=== PATIENT | female | born 1995 | race Hispanic/Latino ===

== ENCOUNTER 2022-02-09 14:54 | Emergency (ER) | payer OTHER ==
[2022-02-09 15:53] LABS: Absolute Lymphocytes (CBC) 0.7 K/uL (0.7-4.9); Hematocrit 36.4 % (36.0-45.0); Lymphocytes % 7.9 % (15.3-44.8); MCV 89.3 fL (80-100); MPV 8.6 fL (7.6-11.3); RBC Red Blood Cell Count 4.08 M/uL (3.86-4.86)
[2022-02-09 16:23] LABS: Urine Blood Trace-intact (Negative); Urine Glucose Negative (Negative); Urine Protein Negative (Negative); Urine Specific Gravity 1.025 (1.005-1.030); Urine pH 6.5 (5.0-7.0)
[2022-02-09 16:24] LABS: Potassium 3.4 mmol/L (3.5-5.1)
--- NOTE | 2022-02-09 16:57 | RAD REPORT ---
EXAM DESCRIPTION: US - Transvaginal OB - 02/09/2022 4:42 pm CLINICAL HISTORY: Nausea/Vomiting COMPARISON: No comparisons FINDINGS: Single IUP identified. heart tones are present. The crown-rump length measures 2.1 c m which is consistent with 8 week 3 day. Yolk sac measures 2 millimeters. The gestational sac measure s 3.9 cm. The heart rate was estimated at 184 beats/ minute. The left ovary measures 1.9 x 1.2 x 1.2 cm with volume 1.5 cc. Vascular flow is present. The right ovary was not visualized. IMPRESSION: Single viable IUP with positive heart tones measuring 8 week 3 day with REINA of . Vascular flow is present within the left ovary. The right ovary was not visualized.
[2022-02-09 17:08] LABS: Urine Specific Gravity/Preg 1.025 (1.005-1.030)
[2022-02-09] MEDS ORDERED: ONDANSETRON 4 MG/2 ML VIAL ONE (17:18)
[2022-02-09] MEDS ORDERED: FAMOTIDINE 20 MG/2 ML VIAL IV ONE (17:19)
[2022-02-09] MEDS ORDERED: Ringers Lactate 1,000 ML IV ONE (17:19)
[2022-02-09] MEDS ORDERED: POTASSIUM 25 MEQ EFFERV TAB ONE (17:19)
--- NOTE | 2022-02-09 18:26 | ER ---
Nurse's Notes [facility] Name: Nani Wolf Age: 26 yrs Sex: Female : 1995 Arrival Date: 02/09/2022 Time: 14:57 Bed DIS2 Private MD: Diagnosis: Other specified related conditions, first trimester;Nausea with vomiting, unspecified;Acute upper respiratory infection, unspecified Presentation: 02/09 14:58 Chief complaint: EMS states: pt is approx 15 weeks c/o SOB and congestion for iw past 4 days, no fever, home COVID test negative today. Coronavirus screen: Client presents with at least one sign or symptom that may indicate coronavirus-19. Ebola Screen: Patient negative for fever greater than or equal to 101.5 degrees Fahrenheit, and additional compatible Ebola Virus Disease symptoms Patient denies exposure to infectious person. Patient denies travel to an Ebola-affected area in the 21 days before illness onset. No symptoms or risks identified at this time. Risk Assessment: Do you want to hurt yourself or someone else? Patient reports no desire to harm self or others. Onset of symptoms was February 05, 2022. 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 Patient and/or iw family updated on plan of care and expected duration. Pain level reassessed. Patient is alert, oriented x 3, equal unlabored respirations, skin warm/dry/pink. Vital Signs: 17:40 BP 109 / 58; Pulse 79; Resp 16; Temp 97.5; Pulse Ox 98% on R/A; iw ED Course: 14:57 Patient arrived in ED. iw 14:57 Araceli Escamilla, RN is Primary Nurse. iw 14:59 Jd Evans PA is PHCP. cp 14:59 Renard Zapata MD is Attending Physician. cp 15:00 Triage completed. iw 16:09 Inserted saline lock: 20 gauge in right antecubital area, using aseptic technique. zm Blood collected. 16:09 Strep Sent. zm 16:09 COVID-19 SARS RT PCR (Document "Date of Onset" if Symptomatic) Sent. zm 16:09 Influenza Screen (a \\T\\ B) Sent. zm 16:10 Abo/rh Typing Sent. zm 16:10 Basic Metabolic Panel Sent. zm 16:10 CBC with Diff Sent. zm 16:10 Quantitative Hcg Sent. zm 16:35 Urine --Ancillary (enter results) Sent. zm 16:44 US Transvaginal Ob In Process Unspecified. EDMS Administered Medications: 17:16 Drug: Zofran (Ondansetron) 4 mg Route: IVP; Site: right antecubital; iw 17:50 Follow up: Response: No adverse reaction iw 17:16 Drug: Pepcid (famotidine) 20 mg Route: IVP; Site: right antecubital; iw 18:00 Follow up: Response: No adverse reaction iw 17:17 Drug: Lactated Ringers Solution 1000 ml Route: IV; Rate: 200 ml/hr; Site: right iw antecubital; 18:30 Follow up: IV Status: Completed infusion iw 17:51 Not Given (Patient Refused): Potassium Effervescent Tablet 25 mEq PO once; dissolve in iw 4 ounces of water or juice Outcome: 18:25 Discharge ordered by . kolby 19:04 Patient left the ED. Signatures: Dispatcher [employer] EDAraceli Shanks, RN RN iw Jd Evans PA PA cp Martinez, Zaina zm
--- NOTE | 2022-02-09 18:26 | EDPHYS ---
Physician Documentation [facility] Name: Nani Wolf Age: 26 yrs Sex: Female : 1995 Arrival Date: 02/09/2022 Time: 14:57 Bed DIS2 Private MD: ED Physician Renard Zapata HPI: 02/09 15:15 This 26 yrs old Female presents to ER via EMS with complaints of Shortness Of cp Breath, Nasal Congestion. 15:15 The patient or guardian reports cough, that is intermittent, nasal congestion, sore cp throat. 15:15 Onset: The symptoms/episode began/occurred 4 day(s) ago. Associated signs and symptoms: cp Pertinent negatives: chest pain, diarrhea, fever, vomiting. 15:15 The patient presents to the emergency department with nausea and vomiting, vaginal cp bleeding, described as spotting. 15:15 course: care: none, Leakage of Fluid: none appreciated, Ultrasound: cp the patient has not had an ultrasound. Previous pregnancies: in previous pregnancies patient has had no complications. Associated signs and symptoms: Pertinent negatives: abdominal pain, fever. 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 cp 15:20 Eyes: Negative for injury, pain, redness, and discharge. cp 15:20 ENT: Positive for sore throat, Negative for drainage from ear(s), ear pain, difficulty swallowing, difficulty handling secretions. 15:20 Cardiovascular: Negative for chest pain, edema, palpitations. 15:20 Respiratory: Positive for cough, "sounds productive", Negative for wheezing. 15:20 Abdomen/GI: Positive for nausea and vomiting, Negative for abdominal pain, diarrhea, constipation, anorexia. 15:20 Back: Negative for pain at rest, pain with movement. 15:20 : Positive for vaginal bleeding, Negative for urinary symptoms. 15:20 Neuro: Negative for altered mental status, headache, weakness. 15:20 All other systems are negative. Exam: 15:25 Constitutional: The patient appears in no acute distress, alert, awake, comfortable, cp non-toxic, well developed, well nourished. 15:25 Head/Face: Normocephalic, atraumatic. cp 15:25 Eyes: Periorbital structures: appear normal, Conjunctiva: normal, no exudate, no injection, Sclera: no appreciated abnormality, Lids and lashes: appear normal, bilaterally. 15:25 ENT: External ear(s): are unremarkable, Ear canal(s): are normal, clear, TM's: dullness, bilaterally, Nose: is normal, Mouth: Lips: moist, Oral mucosa: pink and intact, moist, Posterior pharynx: Airway: no evidence of obstruction, patent, Tonsils: with erythema, no enlargement, no exudate, swelling, is not appreciated, erythema, that is mild, exudate, is not appreciated. 15:25 Neck: ROM/movement: is normal, is supple, without pain, no range of motions limitations, no meningismus. 15:25 Chest/axilla: Inspection: normal. 15:25 Cardiovascular: Rate: normal, Rhythm: regular, Edema: is not appreciated, JVD: is not appreciated. 15:25 Respiratory: the patient does not display signs of respiratory distress, Respirations: normal, no use of accessory muscles, no retractions, labored breathing, is not present, Breath sounds: decreased breath sounds, are not appreciated, stridor, is not appreciated, + upper airway congestion. wheezing: is not appreciated. 15:25 Abdomen/GI: Inspection: abdomen appears normal, Bowel sounds: active, all quadrants, Palpation: abdomen is soft and non-tender, in all quadrants. 15:25 Back: CVA tenderness, is absent. 15:25 Skin: cellulitis, is not appreciated, no rash present. 15:25 Neuro: Orientation: to person, place \\T\\ time. Mentation: is normal, Motor: moves all fours, strength is normal, Sensation: is normal. Vital Signs: 17:40 BP 109 / 58; Pulse 79; Resp 16; Temp 97.5; Pulse Ox 98% on R/A; iw MDM: 15:00 Patient medically screened. cp 18:25 Data reviewed: vital signs, nurses notes, lab test result(s), radiologic studies, cp ultrasound. 18:25 Counseling: I had a detailed discussion with the patient and/or guardian regarding: the cp historical points, exam findings, and any diagnostic results supporting the discharge/admit diagnosis, lab results, radiology results, the need for outpatient follow up, an OB/Gyne specialist, to return to the emergency department if symptoms worsen or persist or if there are any questions or concerns that arise at home. 02/09 15:11 Order name: Abo/rh Typing; Complete Time: 16:34 02/09 15:11 Order name: Basic Metabolic Panel; Complete Time: 16:34 02/09 16:34 Interpretation: Normal except: NA 133; K 3.4; BUN 5; CRE 0.50. 02/09 15:11 Order name: CBC with Diff; Complete Time: 16:34 02/09 16:34 Interpretation: Normal except: EMIGDIO% 80.7; LYM% 7.9. 02/09 15:11 Order name: Quantitative Hcg; Complete Time: 16:34 02/09 16:36 Interpretation: HCGQ 58765; Reviewed. 02/09 15:11 Order name: Influenza Screen (a \\T\\ B); Complete Time: 17:00 02/09 17:00 Interpretation: Reviewed. 02/09 15:11 Order name: Strep; Complete Time: 17:00 02/09 17:00 Interpretation: Reviewed. 02/09 15:11 Order name: COVID-19 SARS RT PCR (Document "Date of Onset" if Symptomatic); Complete cp Time: 17:00 02/09 17:00 Interpretation: Reviewed. 02/09 15:11 Order name: US Transvaginal Ob; Complete Time: 17:00 02/09 16:24 Order name: Urine Dipstick-Ancillary; Complete Time: 16:34 [facility] 02/09 16:24 Order name: Urine --Ancillary (enter results) em1 02/09 16:37 Order name: Throat Culture [facility] 02/09 15:11 Order name: IV Saline Lock; Complete Time: 16:09 02/09 15:11 Order name: Labs collected and sent; Complete Time: 16:09 02/09 15:11 Order name: NPO; Complete Time: 16:09 02/09 15:11 Order name: Urine Dipstick-Ancillary (obtain specimen); Complete Time: 16:23 02/09 15:11 Order name: Urine Test (obtain specimen); Complete Time: 16:23 cp Administered Medications: 17:16 Drug: Zofran (Ondansetron) 4 mg Route: IVP; Site: right antecubital; iw 17:50 Follow up: Response: No adverse reaction iw 17:16 Drug: Pepcid (famotidine) 20 mg Route: IVP; Site: right antecubital; iw 18:00 Follow up: Response: No adverse reaction iw 17:17 Drug: Lactated Ringers Solution 1000 ml Route: IV; Rate: 200 ml/hr; Site: right iw antecubital; 18:30 Follow up: IV Status: Completed infusion iw 17:51 Not Given (Patient Refused): Potassium Effervescent Tablet 25 mEq PO once; dissolve in iw 4 ounces of water or juice Disposition Summary: 02/09/22 18:25 Discharge Ordered Location: Home cp Problem: new cp Symptoms: have improved cp Condition: Stable cp Diagnosis - Other specified related conditions, first trimester cp - Nausea with vomiting, unspecified cp - Acute upper respiratory infection, unspecified cp Followup: cp - With: Private Physician - When: 2 - 3 days - Reason: Recheck today's complaints Discharge Instructions: - Discharge Summary Sheet cp - Nausea and Vomiting, Adult cp - Viral Respiratory Infection cp - First Trimester of cp Forms: - Medication Reconciliation Form cp - Thank You Letter cp - Antibiotic Education cp - Prescription Opioid Use cp Prescriptions: - promethazine 25 mg Oral Tablet - take 1 tablet by ORAL route every 6 hours As needed; 20 tablet; Refills: 0, cp Product Selection Permitted Signatures: Dispatcher [employer] Araceli Loza RN RN iw Jd Evans PA PA cp
[2022-02-11 02:42] VITALS: BP 109/58; TEMP 97.5; O2SAT 98
== END 2022-02-09 19:04 | disposition home or self-care (01) ==
LOC: ER 14:54
DX: O99.511 Diseases of the respiratory system complicating pregnancy, first trimester (principal); O21.9 Vomiting of pregnancy, unspecified; Z20.822 Contact with and (suspected) exposure to COVID-19; Z3A.11 11 weeks gestation of pregnancy
CPT/HCPCS: 96361; 87070; 85025; 80048; 36415; 86900; 81025; 86901; 87081; 84702; 81003; 87804 ×2; 76817; 96375; 96374; 99284; U0003; J7120; J2405